=== PATIENT | male | born 2000 | race African-American/Black ===

== ENCOUNTER 2019-12-08 14:52 | Emergency (ER) | payer BC ==
[2019-12-08] MEDS ORDERED: NS 0.9% 1000 ml BAG 1,000 ML IV ONE (15:25)
[2019-12-08 16:29] LABS: ABS Lymphocytes 1.1 10^3/ul (1.0-4.8); ABS Monocytes 0.5 10^3/ul (0-0.8); Eosinophil % 0.1 %; Hematocrit 43 % (42-52); Hemoglobin 15.1 g/dL (14.0-18.0); Lymphocyte % 14.3 %; Mean Corpuscular HGB Conc 35 g/dL (31-36); Mean Corpuscular Hemoglobin 32 pg (27-31); Mean Corpuscular Volume 93 fL (80-94); Mean Platelet Volume 8.6 fL (7.4-10.4); Nucleated Red Blood Cells % 0.1; Platelet Count 231 10^3/uL (150-450); Red Blood Count 4.68 10^6 /uL (4.18-5.48); Red Cell Distribution Width 13 % (10-15); White Blood Count 7.6 10^3/uL (3.5-10.8)
[2019-12-08 16:49] LABS: Albumin 4.8 g/dL (3.2-5.2); Albumin/Globulin Ratio 1.7 (1-3); BUN/Creatinine Ratio 15.7 (8-20); C Reactive Protein 1.22 mg/L (<8.01); Calcium 10.1 mg/dL (8.6-10.3); EGFR African American 131.9 (>60); Globulin 2.8 g/dL (2-4); Total Bilirubin 0.5 mg/dL (0.2-1.0); Total Protein 7.6 g/dL (6.4-8.9)
[2019-12-08 16:55] LABS: Potassium 4.7 mmol/L (3.5-5.0)
[2019-12-08 17:53] VITALS: BP 108/69
== END 2019-12-08 17:50 | disposition home or self-care (01) ==
LOC: ED 14:52